=== PATIENT | female | born 1940 | race Caucasian/White ===

== ENCOUNTER → 2017-09-12 | Outpatient (CLI) | payer MEDICARE, BC ==
[2017-09-12 11:29] LABS: Blood Urea Nitrogen 19 mg/dL (7-17)
--- NOTE | 2017-09-12 13:01 | CT ---
EXAMINATION TYPE: CT brain w con DATE OF EXAM: 09/12/2017 COMPARISON: NONE HISTORY: Hydrocephalus CT DLP: 1079 mGycm Automated Exposure Control for Dose Reduction was Utilized. TECHNIQUE: CT scan of the head is performed with IV contrast.,CT scan of the head is performed with w ith IV Contrast, patient injected with 100 mL of Isovue 300. FINDINGS: No mass effect or midline shift is seen. The ventricles and sulci are symmetrically mildly prominent compatible with mild age-related volume loss. Few scattered patchy areas of hypoattenuation are seen within the periventricular and subcortical white matter. Postcontrast images show no suspic ious enhancing intraparenchymal mass. No suspicious extra-axial fluid collection is noted. Old lacuna r injury of the right lateral vamsi is present. The globes are intact and the visualized sinuses are c lear. Incidental noted is made of hyperostosis frontalis internus. Minimal atherosclerosis is seen of the intracranial vasculature. IMPRESSION: 1. No evidence of obstructive hydrocephalus or transependymal edema. Cerebral aqueduct appears patent as does the foramen Lauren. Minimal ventricular prominence is symmetric with sulcal prominence and c ompatible with age-related mild cerebral volume loss. 2. Old right pontine lacunar injury. Mild burden nonspecific white matter change, likely on the basis of chronic microangiopathy. 3. No suspicious intracranial enhancement.
== END ==
LOC: RADCTMAIN 11:03
PROVIDERS: ATTEND Family Medicine
DX: G93.9 Disorder of brain, unspecified (principal)
CPT/HCPCS: 82565; 84520; 70460; 36415; Q9967

== ENCOUNTER 2018-04-12 16:34 | Emergency (ER) | payer MEDICARE, BC ==
[2018-04-12] MEDS ORDERED: SODIUM CHLORIDE 0.9% 1,000 ML IV STA (17:32)
--- NOTE | 2018-04-12 17:34 | ED ---
Arrhythmia/Palpitations HPI - General Chief Complaint: Arrhythmia/Palpitations Stated Complaint: Low Heart Rate Time Seen by Provider: 04/12/18 17:15 Source: patient, family, RN notes reviewed Mode of arrival: wheelchair Limitations: altered mental status - History of Present Illness Initial Comments: This is a 77-year-old female history dementia hypertension heart disease with 4 stents who was brought in by her to be evaluated for not feeling well today. This started around 1 PM she states she didn't did not feel well. She was noted by her have a heart rate of 5150 beats a minute and normally is about 70 she denies any chest pain fevers chills nausea vomiting sweats she' s been eating normally. No other modifying factors no new medications. Her does note she's also a 2 diabetic. - Related Data Home Medications Medication Instructions Recorded Confirmed Aspirin 81 mg PO HS 11/07/15 04/12/18 Atorvastatin [Lipitor] 40 mg PO DAILY 11/07/15 04/12/18 Isosorbide Mononitrate [Isosorbide 30 mg PO DAILY 11/07/15 04/12/18 Mononitrate ER] Losartan-Hctz 50-12.5 mg [Hyzaar 1 tab PO DAILY 11/07/15 04/12/18 50-12.5] Metoprolol Tartrate [Lopressor] 12.5 mg PO DAILY 11/07/15 04/12/18 Ideal-3 Fatty Acids/Fish Oil [Fish 1 cap PO HS 01/16/16 04/12/18 Oil 1,000 mg Softgel] Pantoprazole [Protonix] 10 mg PO DAILY 01/16/16 04/12/18 Potassium Chloride [Klor-Con] 10 meq PO BID 01/16/16 04/12/18 hydrALAZINE HCL [Apresoline] 50 mg PO BID 01/16/16 04/12/18 Rivastigmine Tartrate [Exelon] 4.5 mg PO BID 04/12/18 04/12/18 Vit C/E/Zn/Coppr/Lutein/Zeaxan 1 cap PO BID 04/12/18 04/12/18 [Preservision Areds 2 Softgel] glyBURIDE, MICRONIZED [Glynase] 3 mg PO BID 04/12/18 04/12/18 sitaGLIPtin [Januvia] 100 mg PO DAILY 04/12/18 04/12/18 Previous Rx's Medication Instructions Recorded Magnesium Oxide [Mag-Ox] 400 mg PO DAILY tab 11/10/15 Cephalexin [Keflex] 500 mg PO Q6HR #28 cap 04/12/18 Allergies Allergy/AdvReac Type Severity Reaction Status Date / Time No Known Allergies Allergy Verified 04/12/18 18:22 Review of Systems ROS Statement: Those systems with pertinent positive or pertinent negative responses have been documented in the HPI. ROS Other: All systems not noted in ROS Statement are negative. Past Medical History Past Medical History: Blood Disorder, Coronary Artery Disease (CAD), Chest Pain / Angina, Dementia, Diabetes Mellitus, GERD/Reflux, Hyperlipidemia, Hypertension , Osteoarthritis (OA) Additional Past Medical History / Comment(s): HX of Tachycardia due to low K+ level, HX of Bradycardia due to low mg+ level. Has problems w/ gas. S.O. states has had noticeable Dementia for approx. 1 & 1/2 yrs. BLOOD COUNT DOWN CURRENTLY. History of Any Multi-Drug Resistant Organisms: None Reported Past Surgical History: Breast Surgery, Cholecystectomy, Heart Catheterization, Heart Catheterization With Stent, Hysterectomy, Orthopedic Surgery, Tonsillectomy Additional Past Surgical History / Comment(s): RT EYE CATARACT, RT Lumpectomy- Benign. Arthroscopy to MAEGAN Knees. 11/09/15 HEART CATH WITH 4 STENTS TO LAD, 1 STENT TO DIAG. Past Anesthesia/Blood Transfusion Reactions: Postoperative Nausea & Vomiting ( PONV) Additional Past Anesthesia/Blood Transfusion Reaction / Comment(s): S.O. UNAWARE OF THIS. Date of Last Stent Placement:: 11/09/15 Past Psychological History: No Psychological Hx Reported Smoking Status: Former smoker Past Alcohol Use History: None Reported Past Drug Use History: None Reported - Past Family History Mother Family Medical History: No Reported History Father Family Medical History: Cancer Additional Family Medical History / Comment(s): Colon General Exam - General Exam Comments Initial Comments: This is a well-developed well-nourished awake alert pleasant female Limitations: altered mental status General appearance: alert, in no apparent distress Head exam: Present: atraumatic, normocephalic, other (Her hair is noted be thin sparse) Eye exam: Present: normal appearance, PERRL, EOMI. Absent: scleral icterus, conjunctival injection, periorbital swelling ENT exam: Present: normal exam, mucous membranes moist Neck exam: Present: normal inspection. Absent: tenderness, meningismus, lymphadenopathy Respiratory exam: Present: normal lung sounds bilaterally. Absent: respiratory distress, wheezes, rales, rhonchi, stridor Cardiovascular Exam: Present: regular rate, normal rhythm, normal heart sounds. Absent: systolic murmur, diastolic murmur, rubs, gallop, clicks GI/Abdominal exam: Present: soft, normal bowel sounds. Absent: distended, tenderness, guarding, rebound, rigid Extremities exam: Present: normal inspection, full ROM, normal capillary refill. Absent: tenderness, pedal edema, joint swelling, calf tenderness Back exam: Present: normal inspection Neurological exam: Present: alert, oriented X3, CN II-XII intact Psychiatric exam: Present: normal affect, normal mood Skin exam: Present: warm, dry, intact, normal color. Absent: rash Course Vital Signs 04/12/18 04/12/18 04/12/18 16:52 16:57 17:20 Temperature 97.4 F L Pulse Rate 59 L 55 L Pulse Rate [ 58 L Tag Writer ] Respiratory 18 18 Rate Blood Pressure 174/79 180/72 O2 Sat by Pulse 100 97 Oximetry 04/12/18 19:17 Temperature Pulse Rate 50 L Pulse Rate [ Tag Writer ] Respiratory 18 Rate Blood Pressure 164/82 O2 Sat by Pulse 99 Oximetry Medical Decision Making - Medical Decision Making The patient showing much improvement thus far after IV hydration IV and easy replenishment. Chart he is on oral magnesium she will be discharged with instructions to double up on her magnesium for about a week. Increase her fluids she does have also evidence of what appears be a possible early UTI she' ll be placed on some antibiotics for this cultures are pending at this time. Patient family are in agreement - Lab Data Result diagrams: 04/12/18 17:48 04/12/18 17:48 Lab Results 04/12/18 04/12/18 04/12/18 Range/Units 17:48 17:48 17:48 WBC 6.2 (3.8-10.6) k/uL RBC 4.24 (3.80-5.40) m/uL Hgb 12.8 (11.4-16.0) gm/dL Hct 37.6 (34.0-46.0) % MCV 88.8 (80.0-100.0) fL MCH 30.3 (25.0-35.0) pg MCHC 34.2 (31.0-37.0) g/dL RDW 14.4 (11.5-15.5) % Plt Count 115 L (150-450) k/uL Neutrophils % 78 % Lymphocytes % 16 % Monocytes % 4 % Eosinophils % 1 % Basophils % 0 % Neutrophils # 4.8 (1.3-7.7) k/uL Lymphocytes # 1.0 (1.0-4.8) k/uL Monocytes # 0.2 (0-1.0) k/uL Eosinophils # 0.0 (0-0.7) k/uL Basophils # 0.0 (0-0.2) k/uL Sodium 141 (137-145) mmol/L Potassium 3.8 (3.5-5.1) mmol/L Chloride 103 (98-107) mmol/L Carbon Dioxide 29 (22-30) mmol/L Anion Gap 9 mmol/L BUN 18 H (7-17) mg/dL Creatinine 0.68 (0.52-1.04) mg/dL Est GFR (CKD-EPI)AfAm >90 (>60 ml/min/1.73 sqM) Est GFR (CKD-EPI)NonAf 86 (>60 ml/min/1.73 sqM) Glucose 138 H (74-99) mg/dL Calcium 10.4 H (8.4-10.2) mg/dL Magnesium 1.5 L (1.6-2.3) mg/dL Total Bilirubin 0.9 (0.2-1.3) mg/dL AST 28 (14-36) U/L ALT 29 (9-52) U/L Alkaline Phosphatase 66 (38-126) U/L Total Creatine Kinase 29 L (30-135) U/L CK-MB (CK-2) 0.5 (0.0-2.4) ng/mL CK-MB (CK-2) Rel Index 1.7 Troponin I <0.012 (0.000-0.034) ng/mL Total Protein 7.4 (6.3-8.2) g/dL Albumin 4.5 (3.5-5.0) g/dL TSH 0.406 L (0.465-4.680) mIU/L Urine Color Urine Appearance (Clear) Urine pH (5.0-8.0) Ur Specific [place] (1.001-1.035) Urine Protein (Negative) Urine Glucose (UA) (Negative) Urine Ketones (Negative) Urine Blood (Negative) Urine Nitrite (Negative) Urine Bilirubin (Negative) Urine Urobilinogen (<2.0) mg/dL Ur Leukocyte Esterase (Negative) Urine RBC (0-5) /hpf Urine WBC (0-5) /hpf Ur Squamous Epith Cells (0-4) /hpf Urine Bacteria (None) /hpf Urine Mucus (None) /hpf 04/12/18 Range/Units 17:48 WBC (3.8-10.6) k/uL RBC (3.80-5.40) m/uL Hgb (11.4-16.0) gm/dL Hct (34.0-46.0) % MCV (80.0-100.0) fL MCH (25.0-35.0) pg MCHC (31.0-37.0) g/dL RDW (11.5-15.5) % Plt Count (150-450) k/uL Neutrophils % % Lymphocytes % % Monocytes % % Eosinophils % % Basophils % % Neutrophils # (1.3-7.7) k/uL Lymphocytes # (1.0-4.8) k/uL Monocytes # (0-1.0) k/uL Eosinophils # (0-0.7) k/uL Basophils # (0-0.2) k/uL Sodium (137-145) mmol/L Potassium (3.5-5.1) mmol/L Chloride (98-107) mmol/L Carbon Dioxide (22-30) mmol/L Anion Gap mmol/L BUN (7-17) mg/dL Creatinine (0.52-1.04) mg/dL Est GFR (CKD-EPI)AfAm (>60 ml/min/1.73 sqM) Est GFR (CKD-EPI)NonAf (>60 ml/min/1.73 sqM) Glucose (74-99) mg/dL Calcium (8.4-10.2) mg/dL Magnesium (1.6-2.3) mg/dL Total Bilirubin (0.2-1.3) mg/dL AST (14-36) U/L ALT (9-52) U/L Alkaline Phosphatase (38-126) U/L Total Creatine Kinase (30-135) U/L CK-MB (CK-2) (0.0-2.4) ng/mL CK-MB (CK-2) Rel Index Troponin I (0.000-0.034) ng/mL Total Protein (6.3-8.2) g/dL Albumin (3.5-5.0) g/dL TSH (0.465-4.680) mIU/L Urine Color Yellow Urine Appearance Clear (Clear) Urine pH 7.5 (5.0-8.0) Ur Specific [place] 1.017 (1.001-1.035) Urine Protein Trace H (Negative) Urine Glucose (UA) Negative (Negative) Urine Ketones Negative (Negative) Urine Blood Negative (Negative) Urine Nitrite Negative (Negative) Urine Bilirubin Negative (Negative) Urine Urobilinogen 2.0 (<2.0) mg/dL Ur Leukocyte Esterase Moderate H (Negative) Urine RBC 1 (0-5) /hpf Urine WBC 11 H (0-5) /hpf Ur Squamous Epith Cells 2 (0-4) /hpf Urine Bacteria Rare H (None) /hpf Urine Mucus Rare H (None) /hpf - Radiology Data Radiology results: report reviewed (I did review the imaging and report no acute findings.), image reviewed Disposition Clinical Impression: Weakness, Hypomagnesemia syndrome, Dehydration Disposition: HOME SELF-CARE Condition: Good Instructions: Hypomagnesemia (ED), Dehydration (ED), Weakness (ED) Additional Instructions: Double up on the magnesium dosing for 1 week. Prescriptions: Cephalexin [Keflex] 500 mg PO Q6HR #28 cap Is patient prescribed a controlled substance at d/c from ED?: No Referrals: Dani Colon MD [Primary Care Provider] - 1-2 days
[2018-04-12 18:03] LABS: Basophils % (A) 0 %; Eosinophils % (A) 1 %; HCT 37.6 % (34.0-46.0); HGB 12.8 gm/dL (11.4-16.0); Lymphocytes % (A) 16 %; MCH 30.3 pg (25.0-35.0); MCHC 34.2 g/dL (31.0-37.0); MCV 88.8 fL (80.0-100.0); Mean Platelet Volume 7.5; Monocytes # (A) 0.2 k/uL (0-1.0); Monocytes % (A) 4 %; Neutrophils # (A) 4.8 k/uL (1.3-7.7); Neutrophils % (A) 78 %; Platelet Count 115 k/uL (150-450); RBC 4.24 m/uL (3.80-5.40); RDW 14.4 % (11.5-15.5); WBC 6.2 k/uL (3.8-10.6)
[2018-04-12 18:08] LABS: Appearance,Urine Clear (Clear); Bacteria,Urine Rare /hpf; Bilirubin,Urine Negative (Negative); Blood,Urine Negative (Negative); Color,Urine Yellow; Glucose,Urine (UA) Negative (Negative); Ketones,Urine Negative (Negative); Leukocyte Esterase,Urine Moderate (Negative); Mucus,Urine Rare /hpf; Nitrite,Urine Negative (Negative); PH, Urine 7.5 (5.0-8.0); Protein,Urine Trace (Negative); RBC,Urine 1 /hpf (0-5); Specific Gravity,Urine 1.017 (1.001-1.035); Squamous Epithelial Cell,Urine 2 /hpf (0-4); WBC,Urine 11 /hpf (0-5)
[2018-04-12 18:16] LABS: ALT 29 U/L (9-52); AST 28 U/L (14-36); Albumin 4.5 g/dL (3.5-5.0); Alkaline Phosphatase 66 U/L (38-126); Anion Gap 9 mmol/L; Blood Urea Nitrogen 18 mg/dL (7-17); Calcium 10.4 mg/dL (8.4-10.2); Carbon Dioxide 29 mmol/L (22-30); Chloride 103 mmol/L (98-107); Glucose 138 mg/dL (74-99); Magnesium 1.5 mg/dL (1.6-2.3); Potassium 3.8 mmol/L (3.5-5.1); Sodium 141 mmol/L (137-145); Total Bilirubin 0.9 mg/dL (0.2-1.3); Total Protein 7.4 g/dL (6.3-8.2)
[2018-04-12 18:28] LABS: Creatine Kinase 29 U/L (30-135)
[2018-04-12 18:40] LABS: Creatine Kinase MB 0.5 ng/mL (0.0-2.4); Troponin I <0.012 ng/mL (0.000-0.034)
[2018-04-12] MEDS ORDERED: MAGNESIUM SULFATE-D5W PMX 1 GM in DEXTROSE/WATER 1 100ML.BAG IVPB ONE (18:42)
--- NOTE | 2018-04-12 18:58 | XR ---
EXAMINATION TYPE: XR chest 2V DATE OF EXAM: 04/12/2018 COMPARISON: NONE HISTORY: Weakness and cough TECHNIQUE: Frontal and lateral views of the chest are obtained. FINDINGS: Patient is rotated. There are overlying cardiac leads. Aorta is dense. There is no focal ai r space opacity, pleural effusion, or pneumothorax seen. The cardiac silhouette size is prominent, t he appearance may be accentuated by technique. The osseous structures are intact. IMPRESSION: No acute cardiopulmonary process. Cardiac size as described.
[2018-04-12] MEDS ORDERED: CEPHALEXIN 500MG STARTER PACK 4 CAP BTL PO STA (20:08)
[2018-04-12 20:30] VITALS: BP 159/75; PULSE 51; RESP 16; TEMP 97.9
[2018-04-12 21:30] LABS: T4, Free (Free Thyroxine) 1.03 ng/dL (0.78-2.19)
== END 2018-04-12 20:25 | disposition home or self-care (01) ==
LOC: EC 16:34
DX: E83.42 Hypomagnesemia (principal); E86.0 Dehydration; R53.1 Weakness; I25.119 Atherosclerotic heart disease of native coronary artery with unspecified angina pectoris; E11.9 Type 2 diabetes mellitus without complications; K21.9 Gastro-esophageal reflux disease without esophagitis; E78.5 Hyperlipidemia, unspecified; I10 Essential (primary) hypertension; Z79.82 Long term (current) use of aspirin; Z79.899 Other long term (current) drug therapy; Z95.5 Presence of coronary angioplasty implant and graft; Z87.891 Personal history of nicotine dependence
CPT/HCPCS: 36415; 93005; 84439; 80053; 84443; 82550; 82553; 83735; 84484; 85025; 81001; 87086; 71046; 99285; 96365; 96361; J3475

== ENCOUNTER → 2019-01-26 | Outpatient (CLI) | payer MEDICARE, BC ==
--- NOTE | 2019-01-28 09:11 | MM ---
Reason for exam: screening (asymptomatic). Last mammogram was performed 1 year and 3 months ago. History: Patient is postmenopausal. Physical Findings: A clinical breast exam by your physician is recommended on an annual basis and results should be correlated with mammographic findings. MG 3D Screening Mammo W/Cad Bilateral CC and MLO view(s) were taken. Prior study comparison: October 11, 2017, mammogram. September 18, 2017, mammogram. There are scattered fibroglandular densities. Stable distortion superiorly right breast likely from prior excision. No significant changes when compared with prior studies. ASSESSMENT: Benign, BI-RAD 2 RECOMMENDATION: Routine screening mammogram of both breasts in 1 year.
== END | disposition home or self-care (01) ==
LOC: RADMAMWWP 14:37
PROVIDERS: ATTEND Obstetrics & Gynecology
DX: Z12.31 Encounter for screening mammogram for malignant neoplasm of breast (principal)
CPT/HCPCS: 77063; 77067